=== PATIENT | male | born 1980 | race Caucasian/White ===

== ENCOUNTER 2016-07-11 09:05 | Outpatient (CLI) | payer BC ==
[2016-07-11 09:55] LABS: eGFR (African) > 60; eGFR (Non-African) > 60
== END 2016-07-11 09:06 ==
LOC: LAB 09:05
PROVIDERS: ATTEND Physician Assistant
DX: Z00.00 Encounter for general adult medical examination without abnormal findings (principal); Z13.6 Encounter for screening for cardiovascular disorders
CPT/HCPCS: 36415; 80053; 80061

== ENCOUNTER 2017-02-27 19:47 | Emergency (ER) | payer BC ==
--- NOTE | 2017-02-27 20:17 | ED Physician Documentation ---
General Adult - HISTORIAN Historian: patient - HPI Stated Complaint: hives/rash Chief Complaint: General Adult Additional Information: Scalp began itching at noon. Since then, he has developed hives over entire body , including hands. Took 25 mg benadryl twice today. Changed soaps a few days ago. 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 - ROS CONST: no problems - PAST HX Past History: none Surgeries/Procedures: other (appy, tonsillectomy) Allergies/Adverse Reactions: Allergies Allergy/AdvReac Type Severity Reaction Status Date / Time No Known Drug Allergies Allergy Verified 02/27/17 20:01 Home Medications: Ambulatory Orders Medication Instructions Recorded NK [NK] 02/27/17 - SOCIAL HX Smoking History: non-smoker - FAMILY HX Family History: No - VITAL SIGNS Vital Signs: Vital Signs Temp Pulse Resp BP Pulse Ox 86 16 158/94 97 02/27/17 19:50 02/27/17 19:50 02/27/17 19:50 02/27/17 19:50 - REVIEWED ASSESSMENTS Nursing Assessment Reviewed: Yes Vitals Reviewed: Yes ED Results Lab/Radiology - Orders Orders: ED Orders Category Date Time Status Dexamethasone Sod Phosphate [Decadron] Med 02/27/17 20:09 Once 8 mg IM NOW ONE Famotidine [Pepcid] Med 02/27/17 20:09 Once 20 mg PO NOW ONE General Adult Physical Exam - PHYSICAL EXAM GENERAL APPEARANCE: mild distress EENT: eye inspection normal, ENT inspection normal, pharynx normal (Mallampati 2 ) NECK: normal inspection, supple RESPIRATORY: no resp distress, breath sounds normal CVS: reg rate & rhythm, heart sounds normal, no murmur BACK: normal inspection SKIN: warm/dry, normal color, other (Scattered pink hives of varying sizes, confluent areas chest and near axillae. ) EXTREMITIES: normal range of motion (gait and stance), no evidence of injury NEURO: CN's nml as tested, motor nml, sensation nml, cognition normal Discharge Clincal Impression: Allergic reaction Qualifiers: Encounter type: initial encounter Qualified Code(s): T78.40XA - Allergy, unspecified, initial encounter Referrals: Lachelle Ball PA [Primary Care Provider] - 2 Days Additional Instructions: Continue to take 25 mg benadryl 4-5 times a day if needed for itching. Condition: Fair Disposition: 01 HOME, SELF-CARE Decision to Admit: NO Decision Time: 20:20
[2017-02-27] MEDS: FAMOTIDINE 20 MG TABLET PO ONE (20:20)
[2017-02-27] MEDS: DEXAMETHASONE SOD PHOS 4 MG/ML VIAL IM ONE (20:20)
[2017-02-27 20:32] VITALS: BP 148/68
== END 2017-02-27 20:27 | disposition home or self-care (01) ==
LOC: ED 19:47
DX: T78.40XA Allergy, unspecified, initial encounter (principal); X58.XXXA Exposure to other specified factors, initial encounter; Y93.9 Activity, unspecified; Y99.9 Unspecified external cause status
CPT/HCPCS: 96372; 99283; J1100

== ENCOUNTER 2017-10-06 19:25 | Emergency (ER) | payer BC ==
--- NOTE | 2017-10-06 19:42 | ED Physician Documentation ---
General Adult - HISTORIAN Historian: patient - HPI Stated Complaint: "Drill bit through right hand" Chief Complaint: General Adult Onset: minutes Timing: still present Severity: moderate Further Comments: yes (Pt is a 37 yo male who was working with a friend who was using a drill, and an accident occurred with the drill bit passing into the pt' s R hand. Pt is unable to flex his thumb at the interphalangeal joint.) - ROS CONST: no problems EYES/ENT: none CVS/RESP: none GI/: none MS/SKIN/LYMPH: other (R hand injury) - PAST HX Past History: none Allergies/Adverse Reactions: Allergies Allergy/AdvReac Type Severity Reaction Status Date / Time No Known Drug Allergies Allergy Verified 10/06/17 19:33 Home Medications: Ambulatory Orders Medication Instructions Recorded NK [NK] 10/06/17 - SOCIAL HX Smoking History: chew - FAMILY HX Family History: No - VITAL SIGNS Vital Signs: Vital Signs Temp Pulse Resp BP Pulse Ox 98.4 F 73 16 145/96 97 10/06/17 19:25 10/06/17 19:25 10/06/17 19:25 10/06/17 19:25 10/06/17 19:25 - REVIEWED ASSESSMENTS Nursing Assessment Reviewed: Yes Vitals Reviewed: Yes Progress - Progress Progress: Transfer to . Hosp. Dr. Cardona. General Adult Physical Exam - PHYSICAL EXAM GENERAL APPEARANCE: mild distress NECK: normal inspection, supple RESPIRATORY: no resp distress, chest non-tender, breath sounds normal CVS: reg rate & rhythm, heart sounds normal BACK: normal inspection SKIN: other (2 cm laceration R thenar eminence) EXTREMITIES: other (laceration at base of thumb (R thenar eminence, 2.5 cm,). Pt can move thumb side to side, but cannot flex at the interphalngeal joint.) NEURO: oriented X3, sensation nml, other (pt cannot flex R thumb at interphalangeal joint.) Discharge Clincal Impression: R hand injury/laceration Referrals: Lachelle Ball PA [Primary Care Provider] - Condition: Stable Disposition: XFER [facility] Decision to Admit: NO Decision Time: 20:00
[2017-10-06 20:02] VITALS: BP 147/86
== END 2017-10-06 20:00 | disposition short-term general hospital (02) ==
LOC: ED 19:25
DX: S61.411A Laceration without foreign body of right hand, initial encounter (principal); S69.91XA Unspecified injury of right wrist, hand and finger(s), initial encounter; Y92.9 Unspecified place or not applicable; Y93.H3 Activity, building and construction; Y99.9 Unspecified external cause status

== ENCOUNTER 2018-05-07 09:25 | Outpatient (CLI) | payer OTHER ==
[2018-05-07 10:20] LABS: eGFR (Non-African) > 60
== END 2018-05-07 09:30 ==
LOC: LAB 09:25
PROVIDERS: ATTEND Nurse Practitioner Family
DX: Z00.00 Encounter for general adult medical examination without abnormal findings (principal)
CPT/HCPCS: 36415; 80053; 80061